=== PATIENT | male | born 1980 | race American Indian/Alaskan Native ===

== ENCOUNTER 2019-03-04 08:27 | Emergency (ER) | payer OTHER ==
[2019-03-04] MEDS ORDERED: BENADRYL PO ONE (08:55)
[2019-03-04] MEDS ORDERED: PEPCID PO ONE (08:55)
--- NOTE | 2019-03-04 09:03 | Emergency Department Report ---
ED Allergic Reaction HPI - General Chief complaint: Allergic Reaction Stated complaint: ITCHY HIVES ALL OVER BODY Time Seen by Provider: 03/04/19 08:46 Source: patient Mode of arrival: Ambulatory Limitations: No Limitations - History of Present Illness Initial Comments: Pt is a 38 yo male who presents to the ED with c/o an allergic reaction that began earlier this morning. He states he noticed hives and itching diffusely on his body. He denies any difficulty breathing, throat swelling, or difficulty swallowing. The patient denies any new medications, new food, new lotion, new detergents. He denies sleeping in a new place. He denies any known allergies. The patient denies ever having this before. Pt denies any PMHx or being on any medications. - Related Data Allergies Allergy/AdvReac Type Severity Reaction Status Date / Time No Known Allergies Allergy Verified 03/04/19 08:29 ED Review of Systems ROS: Stated complaint: ITCHY HIVES ALL OVER BODY Other details as noted in HPI Comment: All other systems reviewed and negative ED Past Medical Hx - Past Medical History Previous Medical History?: No - Surgical History Past Surgical History?: Yes Additional Surgical History: Appendicitis - Social History Smoking Status: Current Some Day Smoker Substance Use Type: Alcohol ED Physical Exam - General Limitations: No Limitations General appearance: alert, in no apparent distress - Head Head exam: Present: atraumatic, normocephalic - Eye Eye exam: Present: normal appearance - ENT ENT exam: Present: normal orophraynx, mucous membranes moist, other (uvula is midline without edema, no tongue edema) - Respiratory Respiratory exam: Present: normal lung sounds bilaterally. Absent: respiratory distress, wheezes, rales, rhonchi, stridor, chest wall tenderness, accessory muscle use, decreased breath sounds, prolonged expiratory - Cardiovascular Cardiovascular Exam: Present: regular rate, normal rhythm, normal heart sounds. Absent: systolic murmur, diastolic murmur, rubs, gallop, clicks - Neurological Exam Neurological exam: Present: alert, oriented X3 - Psychiatric Psychiatric exam: Present: normal affect, normal mood - Skin Skin exam: Present: warm, dry, other (urticaria present on the left forearm and on the back, none present on the chest, face, or abdomen) ED Course Vital Signs 03/04/19 03/04/19 08:34 10:20 Temperature 98 F 98 F Pulse Rate 68 60 Respiratory 16 16 Rate Blood Pressure 118/74 Blood Pressure 104/61 [Left] O2 Sat by Pulse 99 100 Oximetry - Reevaluation(s) Reevaluation #1: 03/04/19 10:00 itching and urticaria resolved after medications ED Medical Decision Making - Lab Data Vital Signs 03/04/19 03/04/19 08:34 10:20 Temperature 98 F 98 F Pulse Rate 68 60 Respiratory 16 16 Rate Blood Pressure 118/74 Blood Pressure 104/61 [Left] O2 Sat by Pulse 99 100 Oximetry - Medical Decision Making Pt is a 38 yo male who presents to the ED with c/o an allergic reaction that began earlier this morning. He states he noticed hives and itching diffusely on his body. He denies any difficulty breathing, throat swelling, or difficulty swallowing. The patient denies any new medications, new food, new lotion, new detergents. He denies sleeping in a new place. He denies any known allergies. The patient denies ever having this before. Pt denies any PMHx or being on any medications. Pt states that it appears to be improving. On examination pt has urticaria to the left forearm and to the back. He has no tongue edema, uvula is midline without edema, no angioedema, breath sounds are normal bilaterally. Skin examination consistent with allergic rxn, pt given benadryl and pepcid. VSS. On reexamination, itching and urticaria resolved. Pt observed in the ED for 1 hour. Pt stated he did drink a new alcohol that he has never had before last night. Advised pt to not drink that alcohol again. Will have pt follow up with PCP in the next 2-3 days. Pt given list of community resources. Advised pt to return to the ED immediately for any new or worsening symptoms. - Differential Diagnosis allergic reaction, urticaria, contact dermatitis, irritant dermatitis Critical care attestation.: If time is entered above; I have spent that time in minutes in the direct care of this critically ill patient, excluding procedure time. ED Disposition Clinical Impression: Allergic reaction Qualifiers: Encounter type: initial encounter Qualified Code(s): T78.40XA - Allergy, unspecified, initial encounter Disposition: DC-01 TO HOME OR SELFCARE Is pt being admited?: No Does the pt Need Aspirin: No Condition: Stable Instructions: Urticaria (ED) Additional Instructions: Please follow up with a primary care doctor in the next 2-3 days. May use benadryl and pepcid over the counter for any further rash/itching. Return to the emergency room immediately for any new or worsening symptoms. Referrals: PAVITHRA SONI MD [Primary Care Provider] - 2-3 Days Time of Disposition: 09:54 Print Language: DUTCH
[2019-03-04 10:20] VITALS: BP 104/61
== END 2019-03-04 10:21 | disposition home or self-care (01) ==
LOC: ED 08:27
DX: T78.40XA Allergy, unspecified, initial encounter (principal); F17.200 Nicotine dependence, unspecified, uncomplicated; X58.XXXA Exposure to other specified factors, initial encounter
CPT/HCPCS: 99282